=== PATIENT | male | born 1945 | race Caucasian/White ===

== ENCOUNTER 2017-03-26 10:23 | Outpatient (CLI) | payer MEDICARE, OTHER ==
[2017-03-26 11:12] LABS: ALT (SGPT) 31 U/L (8-55); AST (SGOT) 23 U/L (5-34); Albumin 4.3 g/dL (3.4-4.8); Alkaline Phosphatase 61 U/L (40-150); Anion Gap 14 mmol/L (10-20); BUN (Urea Nitrogen) 24 mg/dL (8.4-25.7); Bilirubin, Total 0.5 mg/dL (0.2-1.2); Calc. Creatinine Clearance 0 mL/min (70-130); Calcium 9.4 mg/dL (7.8-10.44); Carbon Dioxide 28 mmol/L (23-31); Chloride 104 mmol/L (98-107); Estimated GFR-MDRD 73; Globulin 2.8 g/dL (2.4-3.5); Glucose 131 mg/dL (83-110); Magnesium 2.4 mg/dL (1.6-2.6); Potassium 4.1 mmol/L (3.5-5.1); Protein, Total 7.1 g/dL (5.8-8.1); Sodium 142 mmol/L (136-145)
== END 2017-03-26 10:24 | disposition home or self-care (01) ==
LOC: HPCALD 10:23
PROVIDERS: ATTEND Family Medicine
DX: R25.2 Cramp and spasm (principal)
CPT/HCPCS: 36415; 80053; 83735

== ENCOUNTER 2017-03-29 09:23 | Outpatient (CLI) | payer MEDICARE, OTHER ==
[2017-03-29 10:11] LABS: Bilirubin Negative (Negative); Blood, Urine Negative (Negative); Clarity Clear (Clear); Glucose, Urine (Dipstick) Negative (Negative); Leukocyte Negative (Negative); Nitrite Negative (Negative); Protein, Urine (Dipstick) Negative (Neg-Trace); Urobilinogen 0.2 mg/dL (0.2-1.0); pH, Urine 5.5 (5.0-9.0)
[2017-03-29 10:34] LABS: Anion Gap 15 mmol/L (10-20); BUN (Urea Nitrogen) 19 mg/dL (8.4-25.7); Calc. Creatinine Clearance 0 mL/min (70-130); Calcium 9.3 mg/dL (7.8-10.44); Carbon Dioxide 23 mmol/L (23-31); Chloride 106 mmol/L (98-107); Estimated GFR-MDRD 82; Glucose 121 mg/dL (83-110); Potassium 4.2 mmol/L (3.5-5.1); Sodium 140 mmol/L (136-145)
[2017-03-29 10:37] LABS: Bacteria/HPF Rare-Few HPF (None Seen); RBC/HPF 0-3 HPF (0-3); Squamous Epithelial 0-3 HPF (0-3); WBC/HPF 0-3 HPF (0-3)
== END 2017-03-29 09:24 | disposition home or self-care (01) ==
LOC: BURLAB 09:23
PROVIDERS: ATTEND Urology
DX: N40.1 Benign prostatic hyperplasia with lower urinary tract symptoms (principal); R35.0 Frequency of micturition
CPT/HCPCS: 36415; 80048; 81001; 87086

== ENCOUNTER 2017-08-06 15:46 | Outpatient (CLI) | payer MEDICARE, OTHER ==
--- NOTE | 2017-08-06 16:07 | RAD ---
RIGHT SHOULDER TWO VIEWS: 08/06/17 HISTORY: Right shoulder injury. FINDINGS: No comparison. Acromioclavicular and glenohumeral alignment are maintained. There is mild osteophytosis. No acute fr acture, dislocation, or aggressive osseous erosions are apparent. IMPRESSION: Mild osteoarthritic changes right shoulder. POS: [facility]
== END 2017-08-06 15:47 | disposition home or self-care (01) ==
LOC: BURRAD 15:46
PROVIDERS: ATTEND Family Medicine
DX: M25.511 Pain in right shoulder (principal); M19.011 Primary osteoarthritis, right shoulder

== ENCOUNTER 2018-11-03 09:57 | Outpatient (CLI) | payer MEDICARE, OTHER ==
--- NOTE | 2018-11-04 07:41 | RAD ---
CHEST TWO VIEWS: Date: 11-03-18 Comparison: 10-18-[address] [facility]. FINDINGS: Pleural fluid on the right appears to have resolved. There are now no effusions remaining. The heart size is normal. Median sternotomy sutures are noted from the surgery. The lungs are clear. There is n o vascular congestion or edema. IMPRESSION: No acute thoracic findings. Fluid cleared. POS: [facility]
== END 2018-11-03 09:58 | disposition home or self-care (01) ==
LOC: BURRAD 09:57
PROVIDERS: ATTEND Family Medicine
DX: J90 Pleural effusion, not elsewhere classified (principal)
CPT/HCPCS: 71046

== ENCOUNTER 2020-09-01 14:35 | Outpatient (CLI) | payer MEDICARE, OTHER ==
--- NOTE | 2020-09-01 17:43 | RAD ---
CHEST TWO VIEWS: 09/01/20 Comparison is made with the 11/03/18 study. No major infiltrate or effusion was seen. At most, one could say some of the interstitial lung markin gs are slightly prominent, more so in the lower halves of the lungs. Other than this, there are reall y no focal findings at the moment. There has been a prior CABG. The heart size is normal and stable. The lungs are slightly hyperexpanded. IMPRESSION: No definite acute findings aside from perhaps very minor prominence of the basilar markings. POS: HOME
== END 2020-09-01 14:36 | disposition home or self-care (01) ==
LOC: BURRAD 14:35
PROVIDERS: ATTEND Family Medicine
DX: U07.1 COVID-19 (principal)
CPT/HCPCS: 71046

== ENCOUNTER 2021-01-02 15:24 | Emergency (ER) | payer MEDICARE, OTHER ==
[2021-01-02 19:00] LABS: Mean Corpuscular HGB CONC 33.1 g/dL (32.0-36.0); Mean Corpuscular Hemoglobin 29.7 pg (27.0-31.0); Mean Corpuscular Volume 89.5 fL (78.0-98.0); Mean Platelet Volume 8.1 fL (7.4-10.4); Platelet Count 240 thou/uL (130-400); Red Blood Cell (RBC) Count 5.05 mill/uL (4.70-6.10); White Blood Cell (WBC) Count 7.4 thou/uL (4.8-10.8)
[2021-01-02 19:02] LABS: ALT (SGPT) 29 U/L (8-55); AST (SGOT) 23 U/L (5-34); Albumin 4.4 g/dL (3.4-4.8); Alkaline Phosphatase 70 U/L (40-110); Anion Gap 19 mmol/L (10-20); BUN (Urea Nitrogen) 19 mg/dL (8.4-25.7); Bilirubin, Total 0.5 mg/dL (0.2-1.2); Calc. Creatinine Clearance 0 mL/min (70-130); Calcium 10.7 mg/dL (7.8-10.44); Carbon Dioxide 25 mmol/L (23-31); Chloride 96 mmol/L (98-107); Globulin 3.7 g/dL (2.4-3.5); Glucose 181 mg/dL (83-110); Lipase 28 U/L (8-78); Potassium 3.4 mmol/L (3.5-5.1); Protein, Total 8.1 g/dL (5.8-8.1); Sodium 137 mmol/L (136-145)
[2021-01-02 19:04] LABS: Band 30 % (5-11); Eosinophils 4 % (0-10); Lymphocytes 21 % (21-51); MDiff Complete? YES; Metamyelocyte 1 % (0-0); Monocytes 20 % (0-10); Neutrophil 19 % (42-75); Reactive Lymphocytes 4 % (0-10)
== END 2021-01-02 20:08 | disposition home or self-care (01) ==
LOC: BURERS 15:24
DX: R19.7 Diarrhea, unspecified (principal); I25.10 Atherosclerotic heart disease of native coronary artery without angina pectoris; E11.9 Type 2 diabetes mellitus without complications; E78.00 Pure hypercholesterolemia, unspecified
CPT/HCPCS: 36415; 80053; 83605; 83690; 84484; 85025; 93005

== ENCOUNTER 2025-07-17 16:15 | Emergency (ER) | payer MEDICARE, OTHER ==
[2025-07-17] MEDS ORDERED: Fluorescein Opthalmic Strip ONE (16:41)
== END 2025-07-17 16:57 | disposition home or self-care (01) ==
LOC: BURERS 16:15
DX: H11.32 Conjunctival hemorrhage, left eye (principal); H10.9 Unspecified conjunctivitis; E11.9 Type 2 diabetes mellitus without complications; I25.10 Atherosclerotic heart disease of native coronary artery without angina pectoris; E78.00 Pure hypercholesterolemia, unspecified; Z79.01 Long term (current) use of anticoagulants; Z79.84 Long term (current) use of oral hypoglycemic drugs; Z79.82 Long term (current) use of aspirin; Z79.899 Other long term (current) drug therapy; Z87.891 Personal history of nicotine dependence
CPT/HCPCS: 99282